=== PATIENT | male | born 1990 | race Caucasian/White ===

== ENCOUNTER 2017-11-28 21:09 | Emergency (ER) | payer MEDICAID ==
[~2017-11-28] VITALS: Ht 165.1 cm; Wt 72.6 kg
== END 2017-11-28 22:10 | disposition home or self-care (01) ==
LOC: ED 21:09
PROC: 0HQEXZZ Repair Left Lower Arm Skin, External Approach (ICD-10-PCS; principal; 2017-11-28)
DX: S61.512A Laceration without foreign body of left wrist, initial encounter (principal); F17.200 Nicotine dependence, unspecified, uncomplicated; Z23 Encounter for immunization; W25.XXXA Contact with sharp glass, initial encounter; Y92.89 Other specified places as the place of occurrence of the external cause
CPT/HCPCS: 12002; 90471; 90715; 99283